=== PATIENT | male | born 1945 | race Caucasian/White ===

== ENCOUNTER 2019-05-13 12:22 | Inpatient (IN) | payer OTHER ==
[~2019-05-13] VITALS: Ht 182.9 cm; Wt 105.6 kg
[2019-05-13] VITALS (50 sets, daily range): BP systolic 64–161; BP diastolic 25–133
[2019-05-13] MEDS ORDERED: VITCB500GO PO (12:57)
[2019-05-13] MEDS ORDERED: ASA81BEC PO (12:57)
[2019-05-13] MEDS ORDERED: LIPITOR80 MG PO (12:57)
[2019-05-13 12:58] LABS: EOSINOPHILS 0.1 % (0.0-3.0)
[2019-05-13] MEDS ORDERED: COLACE100 MG PO (12:58)
[2019-05-13] MEDS ORDERED: PACERONE200 MG PO (12:58)
[2019-05-13] MEDS ORDERED: COUMADIN 2 MG TA2 M1 PO (12:59)
[2019-05-13] MEDS ORDERED: PEPCID20 MG PO (12:59)
[2019-05-13] MEDS ORDERED: COUMADIN 2.5MG2.5 M1 PO (12:59)
[2019-05-13 13:00] LABS: ABSOLUTE NEUTROPHILS 2.5 thou/uL (1.4-8.2); BASOPHILS 0.3 % (0.0-2.0); HEMATOCRIT 34.8 % (42.0-52.0); HEMOGLOBIN 11.3 gm/dL (14.0-18.0); LYMPHOCYTES 7.8 % (24.0-44.0); MCH 31.4 pg (26.0-34.0); MCHC 32.5 g/dL (28.0-37.0); MCV 96.5 fL (80.0-100.0); MONOCYTES 10.1 % (1.0-8.0); PLATELET COUNT 210 thou/uL (150-400); POLYS 81.7 % (36.0-66.0); RDW 16.8 % (10.5-14.5)
[2019-05-13] MEDS ORDERED: MELATIN3 MG PO (13:00)
[2019-05-13] MEDS ORDERED: MIDODRINE HCL 55 M1 PO (13:00)
[2019-05-13] MEDS ORDERED: RENAL-VITE TAB0.8 MG PO (13:01)
[2019-05-13] MEDS ORDERED: NEURO-K50 MG PO (13:01)
[2019-05-13] MEDS ORDERED: RENVELA800 MG PO (13:01)
[2019-05-13 13:12] LABS: ANION GAP 3 mmol/L (7-16); BUN 43 mg/dL (7-18); CALCIUM 8.9 mg/dL (8.5-10.1); CHLORIDE 96 mmol/L (98-107); CO2 34 mmol/L (21-32); CREATININE 2.4 mg/dL (0.7-1.3); GLUCOSE 154 mg/dL (74-106); POTASSIUM 3.3 mmol/L (3.5-5.1); SODIUM 133 mmol/L (136-145)
[2019-05-13 13:15] LABS: APTT 42.4 Seconds (24.5-32.8); INR 1.9; PROTIME 19.4 Seconds (9.3-11.4)
[2019-05-13 13:23] LABS: ALBUMIN 2.8 g/dL (3.4-5.0); SGOT 9 U/L (15-37); SGPT 6 U/L (30-65); TOTAL BILIRUBIN 0.5 mg/dL (<0.1-1.0); TOTAL PROTEIN 7.4 g/dL (6.4-8.2); TROPONIN-I <0.06 ng/mL (<0.06)
[2019-05-13 13:26] LABS: BE(vivo) -2.9 mmol/L (-2 to +3); HCO3 25.3 mmol/L (22.0-26.0); PO2 65.3 mmHg (80.0-100.0); pH 7.236 (7.360-7.450); sO2 88.7 % (92.0-98.0)
--- NOTE | 2019-05-13 17:15 | NUR ---
ADMIT: PATIENT IN ICU FROM E.D AT 1510 ON THE BIPAP. VITALS STABLE. PATIENT AWAKE AND RESTLESS, FIDGITING WITH EKG CABLES AND BED LINEN. ADMISSION HISTORY OBTAINED FROM DAUGHTER AND ADMISSION ASSESSMENT COMPLETED, BELONGINGS IDENTIFIED. DR. ROSS IN TO SEE PATIENT. CARE PLAN ACTIVATED AND ICU GUIDELINES AND PRIVACY CODE GIVEN TO DAUGHTER.
--- NOTE | 2019-05-13 17:31 | NUR ---
PATIENT PULLING OFF BIPAP, GOWN, TELE CABLES. CALL PLACED TO DR. ROSS AND ORDERS FOR RESTRAINTS OBTAINED.
--- NOTE | 2019-05-13 17:42 | EKG ---
[address] [place] [address] ELECTROCARDIOGRAM REPORT Name: BELGICA GERMAIN Room #: 240-P ADM IN M.R.#: [id number] Admission: 05/13/19 Attend Phys: Isidoro Sheets MD Discharge: Date of : 49 Report #: [id number] THIS REPORT FOR: //name// [facility] ED Test Date: 2019-05-13 Test Time: 14:16:06 Pat Name: BELGICA GERMAIN Department: Room: 240 Gender: M Generation Technologist: boubacar : 1945 Requested By: Dionicio Torres Order Number: [id number] MD: Forrest Mckinley Measurements Intervals [place] Rate: 116 P: AL: QRS: 26 QRSD: 109 T: 227 QT: 353 QTc: 491 Interpretive Statements Atrial fibrillation Nonspecific ST and T wave abnormality No previous ECG available for comparison Electronically Signed On 05-13-2019 17:42:16 CDT by Forrest Mckinley [email or web address] <ELECTRONICALLY SIGNED> By: Forrest Mckinley MD, [facility] 05/13/19 1742 1416 1416 Forrest Mckinley MD, FACC /EPI
[2019-05-13 17:56] LABS: BE(vivo) 2.2 mmol/L (-2 to +3); HCO3 29.1 mmol/L (22.0-26.0); PCO2 56.3 mmHg (35.0-45.0); PO2 69.4 mmHg (80.0-100.0); pH 7.331 (7.360-7.450); sO2 92.4 % (92.0-98.0)
[2019-05-13 20:58] LABS: URINE BILIRUBIN NEGATIVE (Negative); URINE BLOOD 2+ (Negative); URINE CLARITY CLEAR; URINE COLOR YELLOW; URINE GLUCOSE-RANDOM* NEGATIVE (Negative); URINE KETONES NEGATIVE (Negative); URINE NITRITE-REFLEX NEGATIVE (Negative); URINE PROTEIN (DIPSTICK) 2+ (Negative); URINE SPECIFIC GRAVITY 1.025 (1.005-1.035); URINE UROBILINOGEN 0.2 E.U./dl (0.2-1.0)
[2019-05-13 21:05] LABS: AMP/METHAMP Negative (Negative); BARBITURATES Negative (Negative); BENZODIAZEPINES Negative (Negative); COCAINE Negative (Negative); METHADONE Negative (Negative); OPIATES Negative (Negative); PCP Negative (Negative)
[2019-05-13 21:08] LABS: URINE LEUKOCYTES-REFLEX 2+ (Negative)
[2019-05-13 21:13] LABS: BACTERIA-REFLEX >30 Many /HPF (None Seen); CASTS None Seen /LPF (None Seen); CRYSTALS None Seen /LPF (None Seen); URINE WBC-REFLEX >25 Many /HPF (0-5)
[2019-05-13 21:14] LABS: SQUAMOUS 0-3 Few /LPF (0-3); URINE RBC 0-2 Rare /HPF (0-2)
[2019-05-14] VITALS (90 sets, daily range): BP systolic 82–124; BP diastolic 42–89
--- NOTE | 2019-05-14 04:11 | NUR ---
ASSUMED CARE OF PATIENT AT 1900. ORDERS RECIEVED FOR CHEST CT. PATIENT TAKEN, TOLERATED WELL. EXTREMELY ANXIOUS, TACHYPNIC AND TACHYCARDIC. MORPHINE GIVEN. BLOOD PRESSURE SIGNIFICANTLY LOWERED. ORDER OBTAINED FOR LEVOPHED. TITRATED TO KEEP MAP ABOVE 60, SEE TITRATION FLOW SHEET. 0400, RESTLESS, ANXIOUS AND TACHYPNIC AGAIN. TRIED TO REORIENT. NO RESULTS SO FAR. NOT PROGRESSING TOWARDS POC GOALS.
[2019-05-14 05:53] LABS: HEMATOCRIT 32.9 % (42.0-52.0); HEMOGLOBIN 10.5 gm/dL (14.0-18.0); MCH 30.7 pg (26.0-34.0); MCV 95.9 fL (80.0-100.0); RBC 3.43 mil/uL (4.50-6.00); RDW 16.4 % (10.5-14.5); WBC 4.7 thou/uL (4.0-11.0)
[2019-05-14 06:04] LABS: ALBUMIN 2.6 g/dL (3.4-5.0); CALCIUM 9.5 mg/dL (8.5-10.1); CREATININE 3.2 mg/dL (0.7-1.3); PHOSPHORUS 5.1 mg/dL (2.5-4.9)
[2019-05-14 06:05] LABS: POTASSIUM 4.6 mmol/L (3.5-5.1)
--- NOTE | 2019-05-14 09:08 | NUR ---
RD consult received however no reason specified. Pt admit from LTAC with respiratory failure, CHF. Hx ESRD/dialysis. Has No code status. No diet order yet, requires BIPAP. Wt is obese. Await further plan of care, no nutrition intervention at this time. Continue to follow
[2019-05-14 09:17] LABS: BE(vivo) -1.3 mmol/L (-2 to +3); HCO3 26.1 mmol/L (22.0-26.0); PCO2 56.2 mmHg (35.0-45.0); PO2 103.1 mmHg (80.0-100.0)
[2019-05-14 09:18] LABS: pH 7.284 (7.360-7.450)
--- NOTE | 2019-05-14 10:16 | NUR ---
PATIENT ON BIPAP, RESTLESS AND ATTEMPTS TO TAKE IT OFF. STARTED ON HEMODIALYSIS BY NUCLEAR PLANT TECHNICAL ADVISOR. ABG RESULTS CALLED TO DR. ROSS. FAMILY UPDATED OVER THE PHONE.
[2019-05-14 14:00] LABS: INR 3.1
--- NOTE | 2019-05-14 15:23 | NUR ---
PATIENT STARTED TO DESATURATE AND CALL PLACED TO DR. BAIG. ORDERS RECEIVED FOR RT TO NT SUCTION AND PLACE ON BIPAP IF NEEDED WHILE HE TRIES TO GET A HOLD OF THE GUARDIAN TO UPDATE.
--- NOTE | 2019-05-14 15:26 | NUR ---
FAXED CLINICAL UPDATE TO [facility] RECEIVED CONFIRMATION WILL F/U IN AM WITH FACILITY.
--- NOTE | 2019-05-14 16:24 | NUR ---
INITIAL ASSESSMENT: Received consult. AHSAN reviewed chart and spoke with nursing and attending physician. Pt was admitted from [facility] due to respiratory failure. Pt with hx of CHF/ESRD. Pt is a DNR. Pt is currently on bipap and in restraints, due to pulling off bipap. AHSAN spoke with pt's dtr, Kelsey, via phone. Introduced role of AHSAN. Pt has lived at [facility] since April of 2016. Pt is currently in their snf care unit. Pt is wheelchair bound. Pt goes to the [facility] dialysis clinic in [facility] at 0730. Kelsey confirms plan is for pt to return to [facility] when medically stable. enterprise resource planner faxed info to facility for review. AHSAN updated [facility] post-acute liaison. AHSAN is following to assist as needed with discharge planning.
[2019-05-15] VITALS (56 sets, daily range): BP systolic 77–211; BP diastolic 43–178
[2019-05-15 04:14] LABS: HEMATOCRIT 32.5 % (42.0-52.0); HEMOGLOBIN 10.4 gm/dL (14.0-18.0); MCH 30.7 pg (26.0-34.0); MCHC 32.1 g/dL (28.0-37.0); MCV 95.4 fL (80.0-100.0); PLATELET COUNT 150 thou/uL (150-400); RDW 16.2 % (10.5-14.5); WBC 2.3 thou/uL (4.0-11.0)
[2019-05-15 04:17] LABS: INR 3.8; PROTIME 39.3 Seconds (9.3-11.4)
[2019-05-15 04:22] LABS: ALBUMIN 2.7 g/dL (3.4-5.0); ANION GAP 8 mmol/L (7-16); BUN 80 mg/dL (7-18); CALCIUM 9.6 mg/dL (8.5-10.1); CHLORIDE 96 mmol/L (98-107); CO2 31 mmol/L (21-32); GLUCOSE 146 mg/dL (74-106); MAGNESIUM 2.2 mg/dL (1.8-2.4); POTASSIUM 4.8 mmol/L (3.5-5.1); SGOT 5 U/L (15-37); SGPT < 6 U/L (30-65); SODIUM 135 mmol/L (136-145); TOTAL BILIRUBIN 0.5 mg/dL (<0.1-1.0); TOTAL PROTEIN 6.9 g/dL (6.4-8.2)
[2019-05-15 05:28] LABS: BE(vivo) -0.3 mmol/L (-2 to +3); HCO3 28.5 mmol/L (22.0-26.0); PO2 87.3 mmHg (80.0-100.0); sO2 94.6 % (92.0-98.0)
[2019-05-15 05:29] LABS: PCO2 69.3 mmHg (35.0-45.0); pH 7.232 (7.360-7.450)
[2019-05-15 06:41] LABS: ABSOLUTE NEUTROPHILS 2.1 thou/uL (1.4-8.2)
[2019-05-15 06:42] LABS: ANISOCYTOSIS 1+
--- NOTE | 2019-05-15 10:20 | NUR ---
CONTINEUS TO REQUIRE CONTINUOUS BIPAP. FOLLOWS COMMANDS AND ABLE TO COMMUNICATE. [facility] TUTTLE HERE TO SEE PT AND UPDATED. PT RESIDES IN LTC AT [facility] AND 'S ADMINSTRATION PAYS FOR LTC. NO WEEKEND DC PLANNED.
--- NOTE | 2019-05-15 17:07 | NUR ---
ASSESSMENTS AND INTERVENTIONS DOCCUMENTED. PATIENT REMAINS ON 100% BIPAP. PATIENT DAUGHTER UPDATED ON PLAN OF CARE. PATIENT HAVING DIALYSIS, AND BECAME ANXIOUS. DR. ROSS PAGED AND ORDERS RECIEVED. THE PLAN OF CARE IS TO CONTINUE TO MONITOR RESPIRATORY STATUS.
[2019-05-16] VITALS (75 sets, daily range): BP systolic 63–146; BP diastolic 15–129
[2019-05-16 04:09] LABS: HEMATOCRIT 32.4 % (42.0-52.0); HEMOGLOBIN 10.4 gm/dL (14.0-18.0); MCHC 32.2 g/dL (28.0-37.0); MCV 96.2 fL (80.0-100.0); RBC 3.37 mil/uL (4.50-6.00); RDW 16.9 % (10.5-14.5); WBC 2.4 thou/uL (4.0-11.0)
[2019-05-16 04:17] LABS: INR 4.4; PROTIME 45.9 Seconds (9.3-11.4)
[2019-05-16 04:22] LABS: ALBUMIN 3.1 g/dL (3.4-5.0); ANION GAP 9 mmol/L (7-16); BUN 56 mg/dL (7-18); CALCIUM 9.5 mg/dL (8.5-10.1); CHLORIDE 94 mmol/L (98-107); CO2 30 mmol/L (21-32); GLUCOSE 162 mg/dL (74-106); MAGNESIUM 2.2 mg/dL (1.8-2.4); POTASSIUM 4.4 mmol/L (3.5-5.1); SGOT < 5 U/L (15-37); SGPT 8 U/L (30-65); SODIUM 133 mmol/L (136-145); TOTAL BILIRUBIN 0.6 mg/dL (<0.1-1.0)
[2019-05-16 05:14] LABS: BE(vivo) 0.2 mmol/L (-2 to +3); HCO3 29.3 mmol/L (22.0-26.0); PCO2 73.5 mmHg (35.0-45.0); PO2 82.8 mmHg (80.0-100.0); pH 7.218 (7.360-7.450); sO2 93.5 % (92.0-98.0)
--- NOTE | 2019-05-16 20:15 | NUR ---
ASSESSMENTS AND INTERVENTIONS DOCCUMENTED. PATIENT REMIANS ON BIPAP. PATIENT ON DIALYSIS, BUT UNABLE TO TOLERATE IT. FAMILY AT BEDSIDE AND UPDATED ABOUT PATIENT PLAN OF CARE. THE PLAN OF CARE IS TO CONTINUE TO MONITOR RESPIRATORY STATUS.
[2019-05-17] VITALS (25 sets, daily range): BP systolic 80–114; BP diastolic 45–69
--- NOTE | 2019-05-17 04:42 | NUR ---
PATIENT REMAINS ON BIPAP WITH O2 LOWERED TO 80% THIS EVENING. PATIENT IS AAOX3 AND A-FIB IS NOTED ON THE MONITOR. PATIENT ALSO NOTED TO HAVE GENERALIZED AND SCROTAL NON-PITTING EDEMA. PATIENT AND FAMILY UPDATED ON CARE PLAN AND ALL QUESTIONS ANSWERED. NO ACUTE EVENTS OCCURRED DURING THIS SHIFT AND HOURLY ROUNDING COMPLETED.
[2019-05-17 05:27] LABS: INR 3.5; PROTIME 36.7 Seconds (9.3-11.4)
[2019-05-17 10:19] LABS: HCO3 26.6 mmol/L (22.0-26.0); sO2 95.2 % (92.0-98.0)
[2019-05-17 10:20] LABS: PCO2 65.2 mmHg (35.0-45.0); pH 7.228 (7.360-7.450)
--- NOTE | 2019-05-17 11:30 | NUR ---
DR. BAIG AND MAXX SPOKE WITH PT FAMILY. FAMILY AGREES TO CHANGE TO COMFORT MEASURES. EMOTIONAL SUPPORT GIVEN. COMFORT BASKET ORDERED. PT REMAINS ON BIPAP FAILY
--- NOTE | 2019-05-17 16:43 | NUR ---
NOTIFIED DR. BAIG THAT PT IS ASPIRATING WITH THIN LIQUIDS. PT AND FAMILY ARE AWARE THAT IS GOING INTO HIS LUNGS AND THAT THIS COULD HASTEN HIS DIMISE. PT AND FAMILY AGREE TO LET HIM HAVE ANYTHING HE WANTS. PALLITIVE CARE IN PROGRESS. PT AND FAMILY DECLINE PAIN AND DECLINE PAIN MEDS OR ATIVAN.
--- NOTE | 2019-05-17 18:53 | NUR ---
FAMILY AT BEDSIDE PT ALERT AND TOLORATED MEAL. CONTINUE EMOTIONAL SUPPORT AND PT CARES. TURNING Q2H OR AT PT REQUEST.
--- NOTE | 2019-05-17 19:47 | NUR ---
1440 PT TAKEN OFF BIPAP PER PT AND FAMILY REQUEST. PT REFUSES NASAL CANNULA. EMOTIONAL SUPPORT GIVEN.
[2019-05-18 03:04] VITALS: BP 100/59
[2019-05-18 04:00] VITALS: BP 88/52
--- NOTE | 2019-05-18 12:00 | NUR ---
REPORT RECIEVED FROM LUIS EDUARDO, PT IS COMFORT CARE. WILL CONTINUE TO ASSESS.
--- NOTE | 2019-05-18 13:17 | NUR ---
PT RESIDES AT [facility] FAXED CLINICAL UPDATE TO FACILITY RECEIVED CONFIRMATION AND LEFT MSG WITH RICHARD (ADM) AT FACILITY. DP TO FOLLOW.
--- NOTE | 2019-05-18 13:42 | NUR ---
PT MADE COMFORT CARE 05/17/19. MET WITH PT WHO IS ALERT AND ORIENTED , 2 DTRS AND SON AND DISCUSSED PALLIATIVE/HOSPICE CARE AND PT'S MEDICARE AND [facility] BENEFITS. PT AND CHILDREN AGREEABLE TO HOSPICE AND INTERESTED IN HOSPICE HOUSE [facility]. OFFERRED HOSPICE, [facility], AND [facility] HOUSES AND PT CHOOSES [facility] AND DPOA DTRS AGREE. REFERRAL FAXED TO [facility] INTAKE AND SPOKE WITH ERASMO. REQUESTED [employer] CARB[employer] TOOL DIE MAKER MEET WITH FAMILY AND DTR [employer] PROVIDED TO INTAKE. PT AND FAMILY AGREEABLE TO TRANSITION TO HOSPICE HOUSE IF ACCEPTED [facility] BED AVAILABLE TODAY. RN UPDATED. OUTSIDE HOSPITAL DNR AND DPOA DOCUMENT FAXED WITH REFERRAL. DR. ARENAS UPDATED.
--- NOTE | 2019-05-18 15:46 | NUR ---
met with pt and dtrs and son after dr. galeana met with them. All agreeable to transfer to [facility] today and ambulance picking crew supervisor time of 1800. BREEZY edmonds # for report and updated.
--- NOTE | 2019-05-18 15:48 | NUR ---
rajni fox updated to dc plan.
[2019-05-18] MEDS ORDERED: MSL20MG/ML PO (16:33)
[2019-05-18] MEDS ORDERED: ATIVAN1 M1 PO (16:33)
[2019-05-18 17:07] LABS: HEPATITIS B SURFACE AG Negative (Negative)
--- NOTE | 2019-05-18 17:37 | NUR ---
REPORT CALLED TO [facility]. PT GIVEN A BED BATH AND NEW GOWN. TRANSPORT WILL IMPLEMENTATION ANALYST PT AT 1800 THIS EVENING.
--- NOTE | 2019-05-25 07:21 | HC ---
[facility] [place] [address] CONSULTATION Name: BELGICA GERMAIN Room #: 240-P [facility] IN M.R.#: [id number] Admission: 05/13/19 Attend Phys: Isidoro Sheets MD Discharge: 05/18/19 Date of : 49 Report #: [id number] THIS REPORT FOR: //name// CC: FAM unknown Isidoro Sheets DATE OF SERVICE: 05/13/2019 NEPHROLOGY CONSULTATION REASON FOR CONSULTATION: End-stage renal disease requiring hemodialysis. HISTORY OF PRESENT ILLNESS: This is a 73-year-old male who was seen in the Intensive Care Unit. He has end-stage renal disease and looks like he has been on chronic dialysis at least 3 years. I have some records from the [facility] Dialysis unit where he does his dialysis, which is in [place]. Unfortunately, I do not see a listing of what his actual end-stage etiology is. Nevertheless, he has been dialyzing for 3 years and it looks like he uses a right internal jugular vein tunneled dialysis catheter. He neither has diabetes listed as a diagnosis nor is he on any diabetic meds. He is chronically hypotensive, so I am not certain that hypertension is the etiology. In fact, he is chronically on midodrine to help keep his blood pressure up during dialysis. He was at dialysis earlier today. Again, he is chronically hypotensive and takes midodrine for his dialysis. Third-hand description of his clinical course was that he was on dialysis, but became more dyspneic during dialysis. Blood pressure is not dramatically low. He was taken off the machine and sent by emergency medical care here to the [facility]. He was put on BiPAP at that time. Lab including his blood gases as noted below. Of note, it was significant for respiratory acidosis and hypercapnia as well as some hypoxemia. Again, it looks like he gotten nearly 3 hours of dialysis earlier today and then included nearly 2 liters of ultrafiltration. PAST MEDICAL HISTORY: End-stage renal disease as noted above. He has morbid obesity, but it looks like he has lost quite a bit of weight. He has a left [id number]-[id number] amputation. He has anemia of renal disease, secondary hyperparathyroidism, and obstructive sleep apnea. There is one mention made that he has not followed with his CPAP. MEDICATIONS: Per the dialysis unit note include amiodarone 200 mg daily, vitamin C 500 mg daily, aspirin 81 mg daily, atorvastatin 80 mg daily, Colace, warfarin 2 and 2.5 mg on alternating days, famotidine 20 mg daily, Flonase and some p.r.n. medications. He receives erythropoietin at dialysis. ALLERGIES: No known medical allergies. Review of his dialysis prescription shows normally a 4 hour run with a 2 [facility] [address] [place] [address] CONSULTATION Name: BELGICA GERMAIN Room #: 240-P [facility] IN M.R.#: [id number] Admission: 05/13/19 Attend Phys: Isidoro Sheets MD Discharge: 05/18/19 Date of : 49 Report #: [id number] potassium, 2.5 calcium dialysate, 35 bicarbonate, and blood flow rate of 450 mL per minute. He received 2600 units of insulin with each dialysis. Target weight looks to be at 109.5 kilograms. FAMILY HISTORY: Unavailable. SOCIAL HISTORY: The patient is single, lives in an assisted living at [facility]. He is medically disabled. He receives a dialysis, unit is [facility] in [place]. Apparently, there was a daughter involved in his care. REVIEW OF SYSTEMS: He is rather restless at this time. He is in the intensive care unit. He is on his BiPAP. 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 PHYSICAL EXAMINATION: VITAL SIGNS: Blood pressure 124/79, heart rate 116, which is irregular with atrial fibrillation on the monitor. He has not had fever since arrival. HEENT: Shows pupils are equal and reactive. Sclerae are nonicteric. He is on the BiPAP. NECK: Veins are nondistended. CHEST: Shows decreased respirations bilaterally. HEART: Has an irregularly irregular rhythm with a tachycardia. ABDOMEN: Massive. He has a very large supraumbilical midline ventral hernia. Bowel sounds are present. EXTREMITIES: Show a left jlagm-srg-dqrz amputation. 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 No peripheral edema at this time. He has no peripheral access. He has a tunneled right internal jugular vein catheter in place. Chest x-ray is difficult to interpret partly due to his size and partly due to malrotation. There does appear to be some infiltrate. Heart is very large. It is difficult to tell if there is any volume overload on chest x-ray. LABORATORY DATA: Sodium 133, potassium 3.3, chloride 96, bicarbonate 34, BUN 43, creatinine 2.4, calcium 8.9, phosphorus 4.7, magnesium 2.0, total protein 7.4, albumin 2.8. Troponin less than 0.06. White count 3.0, hemoglobin 11.3, hematocrit 34.8, platelets 210,000. Differential on the white count is 82 neutrophils, 8 lymphs, 10 monos. Original blood gas was pH 7.23, pCO2 of 61, pO2 of 65. Lactate 0.85. I did repeat as I was doing this dictation, which shows on BiPAP, pH 7.33, pCO2 of 36, pO2 69.4, lactate 1.12. ASSESSMENT: 1. Respiratory failure. He still has hypercapnia as well as some hypoxemia. He is showing better numbers on the BiPAP. He does not appear to be in extremis at this time. Blood pressure is actually holding better. I do not think this is all volume overload. I am not certain that additional dialysis will provide [facility] [address] [place] [address] CONSULTATION Name: BELGICA GERMAIN Room #: 240-P [facility] IN .R.#: [id number] Admission: 05/13/19 Attend Phys: Isidoro Sheets MD Discharge: 05/18/19 Date of : 49 Report #: [id number] any benefit. We can certainly do more dialysis down the line and work for extra volume removal. It is somewhat difficult due to his longstanding hypotension. He has already been put on broad-spectrum antibiotics as well as some steroids and those can be continued. As his respiratory parameters are improving slightly, I think we are on the right track. 2. End-stage renal disease. On exam, he is not dramatically volume overloaded; in fact he looks more to be on the dry side. I reviewed his dialysis records. I have reviewed what we have at this time. I do not think this is all volume related. Typically as dialysis progresses, volume removal will help with volume overloaded situations. On the other hand, if he has a pulmonary infiltrate or pneumonia. Those patients will often times do worse around the time of starting dialysis. 3. Severe obesity. 4. History of sleep apnea and I think this may be some component also. 5. Prior left zfufx-xsu-nkfe amputation. 6. Anemia of end-stage renal disease. PLAN: 1. We will continue to monitor at this point. 2. Probable dialysis again tomorrow pending his response overnight. Certainly, if he gets to be more of a volume issue, we can dialyze him before more tonight. 3. We will follow along the care of this patient. <ELECTRONICALLY SIGNED> By: Ronal Dominguez MD 05/25/19 0721 1802 0026 Ronal Dominguez MD /nt
== END 2019-05-18 19:55 | disposition hospice, inpatient (51) | DRG 189 ==
LOC: ER 12:22 → EROBS 14:25 → ICU 14:25
PROVIDERS: Emergency Medicine; Hospitalist; Internal Medicine Nephrology; Pediatrics; ADMIT Internal Medicine
PROC: 5A09357 Assistance with Respiratory Ventilation, Less than 24 Consecutive Hours, Continuous Positive Airway Pressure (ICD-10-PCS; principal; 2019-05-13)
PROC: 5A09357 Assistance with Respiratory Ventilation, Less than 24 Consecutive Hours, Continuous Positive Airway Pressure (ICD-10-PCS; 2019-05-14)
PROC: 5A1D70Z Performance of Urinary Filtration, Intermittent, Less than 6 Hours Per Day (ICD-10-PCS; 2019-05-15)
PROC: 5A09357 Assistance with Respiratory Ventilation, Less than 24 Consecutive Hours, Continuous Positive Airway Pressure (ICD-10-PCS; 2019-05-15)
PROC: 5A09357 Assistance with Respiratory Ventilation, Less than 24 Consecutive Hours, Continuous Positive Airway Pressure (ICD-10-PCS; 2019-05-16)
PROC: 5A1D70Z Performance of Urinary Filtration, Intermittent, Less than 6 Hours Per Day (ICD-10-PCS; 2019-05-16)
PROC: 5A09357 Assistance with Respiratory Ventilation, Less than 24 Consecutive Hours, Continuous Positive Airway Pressure (ICD-10-PCS; 2019-05-17)
DX: J96.01 Acute respiratory failure with hypoxia (principal); N18.6 End stage renal disease; G93.41 Metabolic encephalopathy; N25.81 Secondary hyperparathyroidism of renal origin; J98.11 Atelectasis; E87.2 Acidosis; I48.91 Unspecified atrial fibrillation; J44.9 Chronic obstructive pulmonary disease, unspecified; I50.9 Heart failure, unspecified; Z66 Do not resuscitate; D72.819 Decreased white blood cell count, unspecified; E66.01 Morbid (severe) obesity due to excess calories; G47.33 Obstructive sleep apnea (adult) (pediatric); D63.1 Anemia in chronic kidney disease; I95.9 Hypotension, unspecified; J96.02 Acute respiratory failure with hypercapnia; Z51.5 Encounter for palliative care; Z89.511 Acquired absence of right leg below knee; Z89.611 Acquired absence of right leg above knee; Z79.82 Long term (current) use of aspirin; Z79.899 Other long term (current) drug therapy; Z79.01 Long term (current) use of anticoagulants; Z99.2 Dependence on renal dialysis; Z68.31 Body mass index [BMI] 31.0-31.9, adult
CPT/HCPCS: 10078; 32100